=== PATIENT | male | born 1985 | race Caucasian/White ===

== ENCOUNTER 2021-02-20 06:54 | Emergency (ER) | payer OTHER ==
[~2021-02-20] VITALS: Ht 180.3 cm; Wt 79.8 kg
[2021-02-20] MEDS ORDERED: IBUP80TA PO (07:00)
[2021-02-20] MEDS ORDERED: KETOROLAC 30 MG/ML 1ML VIAL IM ONE (07:15)
[2021-02-20] MEDS ORDERED: methocarbamoL 500 MG TAB PO ONE (07:15)
[2021-02-20] MEDS ORDERED: LIDOCAINE 5% (LIDODERM) PATCH TD ONE ×2 (07:15→07:20)
--- NOTE | 2021-02-20 08:04 | REP ---
INDICATION: back pain COMPARISON: None. TECHNIQUE: AP, lateral, bilateral oblique, and coned-down views of the lumbar spine. FINDINGS: Alignment and lordosis maintained. Vertebral bodies are intact. No acute fracture/compression injury or subluxation. Disc spaces are relatively normal/age-appropriate. No obvious spondylolysis or spondylolisthesis. IMPRESSION: Normal age-appropriate lumbosacral Spine series. <Electronically signed by Marcus Mosqueda > 02/20/21 0800
--- OUTSIDE RECORDS SUMMARY | 2021-02-20 08:18 | CCD ---
Author Author [facility] Organization [facility] Address Unknown Phone Unavailable Support Name Relationship Address Phone AIR FORCE Next Of Kin CHANG[employer] UNITS UN, UN UN [place] Next Of Kin [address] [place] [address] AFSHIN [place] Next Of Kin [address] [place] [address] [facility] Next Of Kin [address] [place] [address] T[place] Next Of Kin [address] [place] [address] Alana Fields [facility] [address] [place] [address] Unavailable Re-disclosure Warning The records that you are about to access may contain information from federally-assisted alcohol or drug abuse programs. If such information is present, then the following federally mandated warning applies: This information has been disclosed to you from records protected by federal confidentiality rules (42 CFR part 2). The federal rules prohibit you from making any further disclosure of this information unless further disclosure is expressly permitted by the written consent of the person to whom it pertains or as otherwise permitted by 42 CFR part 2. A general authorization for the release of medical or other information is NOT sufficient for this purpose. The Federal rules restrict any use of the information to criminally investigate or prosecute any alcohol or drug abuse patient.The records that you are about to access may contain highly sensitive health information, the redisclosure of which is protected by Article 27-F of the [facility] Public Health law. If you continue you may have access to information: Regarding HIV / AIDS; Provided by facilities licensed or operated by the [facility] Office of Mental Health; or Provided by the [facility] Office for People With Developmental Disabilities. If such information is present, then the following [facility] mandated warning applies: This information has been disclosed to you from confidential records which are protected by state law. State law prohibits you from making any further disclosure of this information without the specific written consent of the person to whom it pertains, or as otherwise permitted by law. Any unauthorized further disclosure in violation of state law may result in a fine or nursing home sentence or both. A general authorization for the release of medical or other information is NOT sufficient authorization for further disc losure. Family History Family Member Name Family Member Gender Family Member Status Date o f Status Description Data Source(s) Unknown Unknown Problem [facility] ([facility]) sister Medications No Information Insurance Providers Payer name Policy type / Coverage type Policy ID Covered libertarian ID Covered libertarian's relationship to garg Policy Garg Plan Information [facility] [id number] S [id number] [facility] [id number] S [id number] SELF PAY UNAVAILABLE S UNAVAILA BLE [facility] ACTIVE DUTY [id number] SP [id number] ANSI-Commercial [id number] [facility] [id number] S [id number] [facility] ACTIVE DUTY [id number] SP [id number] Problems, Conditions, and Diagnoses No Information Surgeries/Procedures No Information Results ID Date Data Source [id number] 01/24/2020 12:00:00 AM EDT [facility] Name Value Range Interpretation Code Description Data Amairani rce(s) Supporting Document(s) SARS coronavirus 2 RNA [Presence] in Res piratory specimen by ORTIZ with probe detection [facility] This lab was ordered by [facility] and reported by [facility]. Procedure Social History No Information
[2021-02-20] MEDS ORDERED: METH-1164 PO (08:31)
[2021-02-20] MEDS ORDERED: LIDO5DIS41 TOP (08:32)
[2021-02-20 08:37] VITALS: BP 117/74
[2021-02-20] MEDS ORDERED: **NOTE PATIENT COMMENT** MISC XX SCH (21:00)
== END 2021-02-20 09:07 | disposition home or self-care (01) ==
LOC: M ED 06:54
DX: S33.5XXA Sprain of ligaments of lumbar spine, initial encounter (principal); X58.XXXA Exposure to other specified factors, initial encounter; Y92.89 Other specified places as the place of occurrence of the external cause; M54.30 Sciatica, unspecified side
CPT/HCPCS: 72110; 81001; 96372; 99283; J1885

== ENCOUNTER 2021-03-04 10:03 | Emergency (ER) | payer OTHER ==
[~2021-03-04] VITALS: Ht 180.3 cm; Wt 79.5 kg
[~2021-03-04 10:03] MED LIST: IBUP80TA PO; LIDO5DIS41 TOP; METH-1164 PO
[2021-03-04 10:04] VITALS: BP 109/73
--- OUTSIDE RECORDS SUMMARY | 2021-03-04 10:14 | CCD ---
Author Author [facility] Organization [facility] Address Unknown Phone Unavailable Support Name Relationship Address Phone [employer] Next Of Kin [employer] UN, UN UN [place] Next Of Kin [address] [place] [address] AFSHIN [place] Next Of [place] [address] [place] [address] [employer] Next Of Kin [address] [place] [address] [place] Next Of Kin [address] [place] [address] AFSHIN [place] ECON [address] [place] [id number] Alana Fields ECON [address] [place] [address] Unavailable Re-disclosure Warning The records that you [...] is protected by Article 27-F of the [facility] Public Health law. If you continue you may have access to information: Regarding HIV / AIDS; Provided by facilities licensed or operated by the [facility] Office of Mental Health; or Provided by the [facility] Office for People With Developmental Disabilities. If such information is present, then the following [facility] mandated warning applies: This information has been [...] law may result in a fine or prison sentence or both. A general authorization for [...] relationship to garg Policy Garg Plan Information [facility] [id number] S [id number] [facility] [id number] S [id number] SELF PAY UNAVAILABLE S UNAVAILA BLE [facility] ACTIVE DUTY [id number] ANSI-Commercial [id number] [facility] [id number] S [id number] [facility] ACTIVE DUTY [id number] Problems, Conditions, and Diagnoses No Information Surgeries/Procedures No Information Results ID Date Data Source [id number] 01/24/2020 12:00:00 AM EDT [facility] Name Value Range Interpretation Code Description Data Amairani rce(s) Supporting Document(s) SARS coronavirus 2 RNA [Presence] in Res piratory specimen by ORTIZ with probe detection [facility] This lab was ordered by [facility] C[facility] and reported by [facility]. Procedure Social History No Information
--- OUTSIDE RECORDS SUMMARY | 2021-03-04 12:34 | CCD ---
Author Author [facility] Organization [facility] Address Unknown Phone Unavailable Support Name Relationship Address Phone [employer] Next Of Kin CH[employer] UN[employer] UN, UN UN [place] Next Of Kin [address] [place] [address] AFSHIN [place] Next Of [place] [address] [place] [address] [employer] Next Of Kin [address] [place] [address] [place] Next Of Kin [address] [place] [address] AFSHIN [place] ECON [address] [place] [id number] Alana Fields ECON [address] [place] [address] Unavailable Re-disclosure Warning The records that you [...] is protected by Article 27-F of the [facility] Public Health law. If you continue you may have access to information: Regarding HIV / AIDS; Provided by facilities licensed or operated by the [facility] Office of Mental Health; or Provided by the [facility] Office for People With Developmental Disabilities. If such information is present, then the following [facility] mandated warning applies: This information [...] law may result in a fine or fdc sentence or both. A general authorization for [...] relationship to garg Policy Garg Plan Information [facility] [id number] S [id number] [facility] [id number] S [id number] SELF PAY UNAVAILABLE S UNAVAILA BLE [facility] ACTIVE DUTY [id number] ANSI-Commercial [id number] [facility] [id number] S [id number] [facility] ACTIVE DUTY [id number] Problems, Conditions, and Diagnoses No Information Surgeries/Procedures No Information Results ID Date Data Source [id number] 01/24/2020 12:00:00 AM EDT [facility] Name Value Range Interpretation Code Description Data Amairani rce(s) Supporting Document(s) SARS coronavirus 2 RNA [Presence] in Res piratory specimen by ORTIZ with probe detection [facility] This lab was ordered by [facility] Carias and reported by [facility]. Procedure Social History No Information
[2021-03-04] MEDS ORDERED: ACETAMINOPHEN 325 MG TAB PO ONE (14:10)
[2021-03-04] MEDS ORDERED: CYCL-707 PO (14:11)
[2021-03-04] MEDS ORDERED: MEDR4PAK PO (14:11)
== END 2021-03-04 14:22 | disposition home or self-care (01) ==
LOC: M ED 10:03
DX: M54.30 Sciatica, unspecified side (principal); G89.29 Other chronic pain; Z79.899 Other long term (current) drug therapy; Z82.49 Family history of ischemic heart disease and other diseases of the circulatory system

== ENCOUNTER → 2021-07-10 | Outpatient (CLI) | payer OTHER ==
[~2021-07-10] MED LIST changes: +CYCL-707 PO; +MEDR4PAK PO
[2021-07-10 10:15] LABS: PLATELET COUNT, AUTOMATED 238 10^3/uL (150-450)
[2021-07-10 10:25] LABS: INR 0.9; PROTHROMBIN TIME 12.6 SECONDS (12.7-14.5)
[2021-07-10 10:26] LABS: PARTIAL THROMBOPLASTIN TIME 26.4 SECONDS (25.9-37.0)
== END ==
LOC: M LAB 08:59
PROVIDERS: ATTEND Physical Medicine & Rehabilitation
DX: Z01.812 Encounter for preprocedural laboratory examination (principal); M51.16 Intervertebral disc disorders with radiculopathy, lumbar region

== ENCOUNTER 2023-09-12 03:54 | Observation (INO) | payer OTHER ==
[~2023-09-12] VITALS: Ht 180.3 cm; Wt 86.7 kg
[2023-09-12 04:26] LABS: BASO % 0.2 % (0.0-1.0); EOS # 0.2 10^3/uL (0.0-0.5); EOS % 1.2 % (0.0-3.0); HEMATOCRIT 45.2 % (42.0-52.0); LYMPH # 1.6 10^3/uL (1.5-5.0); MEAN CORPUSCULAR HEMOGLOBIN 30.3 pg (27.0-33.0); MEAN CORPUSCULAR HGB CONC 33.2 g/dl (32.0-36.5); MEAN CORPUSCULAR VOLUME 91.3 fl (80.0-96.0); MONO # 0.9 10^3/uL (0.0-0.8); MONO % 5.2 % (2.0-8.0); NEUTROPHILS # 14.5 10^3/uL (1.5-8.5); NEUTROPHILS % 84.1 % (36.0-66.0); PLATELET COUNT, AUTOMATED 234 10^3/uL (150-450); RED BLOOD COUNT 4.95 10^6/uL (4.30-6.10); WHITE BLOOD COUNT 17.2 10^3/uL (4.0-10.0)
[2023-09-12 04:48] LABS: LIPASE 39 U/L (12-53)
[2023-09-12 04:50] LABS: ALBUMIN 4.2 G/DL (3.2-5.2); ALKALINE PHOSPHATASE 67 U/L (46-116); ALT/SGPT 23 U/L (7.0-40); AST/SGOT 16 U/L (<34); BILIRUBIN,DIRECT 0.4 MG/DL (<0.4); BLOOD UREA NITROGEN 14 MG/DL (9-23); CALCIUM LEVEL 9.5 MG/DL (8.5-10.1); CARBON DIOXIDE LEVEL 26 MMOL/L (20-31); CHLORIDE LEVEL 103 MMOL/L (98-107); CREATININE FOR GFR 0.93 MG/DL (0.70-1.30); GLOMERULAR FILTRATION RATE > 60.0 (>60); GLUCOSE, FASTING 114 MG/DL (60-100); POTASSIUM SERUM 3.9 MMOL/L (3.5-5.1); SODIUM LEVEL 137 MMOL/L (136-145); TOTAL PROTEIN 6.8 G/DL (5.7-8.2)
[2023-09-12] MEDS ORDERED: ISOVUE-370 76% 100ML VIAL As Ordered ONE (05:38)
[2023-09-12] MEDS: KETOROLAC 30 MG/ML 1ML VIAL IV ONE (05:41)
[2023-09-12] MEDS: NS 1,000 ML IV ONE ×2 (05:43→07:40)
[2023-09-12] MEDS: PIPERACILLIN/TAZOBACTAM SOD 3.375 GM in D5W MINI-BAG PLUS 50 ML IV ONE (06:10)
[2023-09-12] MEDS ORDERED: HOME MED LIST COMPLETE! XX SCH ×2 (06:30→08:15)
[2023-09-12] MEDS: MORPHINE 2 MG/ML 1ML VIAL IV ONE (12:10)
[2023-09-12] MEDS: NS 1,000 ML IV SCH (15:30)
[2023-09-12] MEDS ORDERED: MORPHINE 4 MG/ML 1ML VIAL IV PRN (16:00)
[2023-09-12 16:25] VITALS: BP 116/68; TEMP 97.5; O2SAT 94
[2023-09-12] MEDS: PIPERACILLIN/TAZOBACTAM SOD 3.375 GM in D5W MINI-BAG PLUS 50 ML IV SCH (16:35)
[2023-09-12] MEDS ORDERED: DESFLURANE 240 ML INHALANT As Ordered ONE (18:33)
[2023-09-12] MEDS ORDERED: propofoL 200 MG/20 ML VIAL As Ordered ONE (18:35)
[2023-09-12] MEDS ORDERED: ROCURONIUM BROMIDE 50MG/5ML VIAL As Ordered ONE (18:35)
[2023-09-12] MEDS ORDERED: ONDANSETRON 4MG 2ML VIAL As Ordered ONE (18:35)
[2023-09-12] MEDS ORDERED: METOCLOPRAMIDE INJ 10MG/2ML VIAL As Ordered ONE (18:35)
[2023-09-12] MEDS ORDERED: LIDOCAINE 2% 100MG/5ML SDV (FOR ANES.) As Ordered ONE (18:35)
[2023-09-12] MEDS ORDERED: MIDAZOLAM INJ 2MG/2ML VIAL As Ordered ONE (19:16)
[2023-09-12] MEDS ORDERED: fentaNYL 100 MCG/2 ML INJECTION As Ordered ONE (19:16)
[2023-09-12] MEDS ORDERED: dexmedeTOMIDine (4MCG/ML)200MCG/50ML BTL (PRECEDEX) As Ordered ONE (19:19)
[2023-09-12] MEDS ORDERED: SUGAMMADEX SODIUM 500 MG/5 ML VIAL (BRIDION) As Ordered ONE (19:19)
[2023-09-12] MEDS ORDERED: KETOROLAC 60MG 2ML VIAL As Ordered ONE (19:21)
[2023-09-12 19:23] VITALS: BP 126/68; TEMP 97.5; O2SAT 97
[2023-09-12] MEDS ORDERED: ACETAMINOPHEN 1000MG 100ML IV BAG As Ordered ONE (20:04)
[2023-09-12] MEDS: LIDOCAINE 1% SDV 30ML VIAL As Ordered ONE (20:33)
[2023-09-12] MEDS ORDERED: fentaNYL 100 MCG/2 ML INJECTION IV PRN (20:35)
[2023-09-12] MEDS ORDERED: HYDROMORPHONE HCL 0.5 MG/ 0.5 ML SYRINGE IV PRN (20:35)
[2023-09-12] MEDS ORDERED: ONDANSETRON 4MG 2ML VIAL IV PRN ×2 (20:35→20:45)
[2023-09-12] MEDS ORDERED: PERCOCET 5MG/325MG TAB PO PRN ×2 (20:45)
[2023-09-12] MEDS: LR 1,000 ML IV SCH (21:20)
[2023-09-12] MEDS: oxyCODONE 5MG TAB PO PRN (21:20)
[2023-09-12 21:40] VITALS: BP 111/81; TEMP 97; O2SAT 96
[2023-09-12 22:10] VITALS: BP 111/81; TEMP 97.3; O2SAT 94
[2023-09-12 22:40] VITALS: BP 110/74; TEMP 97.3; O2SAT 95
[2023-09-12] MEDS: KETOROLAC 30 MG/ML 1ML VIAL IV SCH (23:25)
[2023-09-12 23:40] VITALS: BP 121/79; TEMP 97; O2SAT 94
[2023-09-13 00:40] VITALS: BP 117/77; TEMP 97.3; O2SAT 94
[2023-09-13 01:40] VITALS: BP 112/73; TEMP 97.3; O2SAT 93
[2023-09-13 02:40] VITALS: BP 112/72; TEMP 97.3; O2SAT 94
[2023-09-13 05:40] VITALS: BP 103/62; TEMP 97.3; O2SAT 95
[2023-09-13 05:41] VITALS: TEMP 97.5
[2023-09-13 07:16] LABS: BASO % 0.1 % (0.0-1.0); EOS % 0.1 % (0.0-3.0); HEMATOCRIT 39.3 % (42.0-52.0); HEMOGLOBIN 13.1 g/dl (13.5-17.5); LYMPH % 13.3 % (24.0-44.0); MEAN CORPUSCULAR HEMOGLOBIN 30.6 pg (27.0-33.0); MEAN CORPUSCULAR HGB CONC 33.3 g/dl (32.0-36.5); MEAN CORPUSCULAR VOLUME 91.8 fl (80.0-96.0); MONO # 0.3 10^3/uL (0.0-0.8); MONO % 4.6 % (2.0-8.0); NEUTROPHILS % 81.6 % (36.0-66.0); PLATELET COUNT, AUTOMATED 185 10^3/uL (150-450); RED BLOOD COUNT 4.28 10^6/uL (4.30-6.10); WHITE BLOOD COUNT 7.4 10^3/uL (4.0-10.0)
[2023-09-13 07:59] LABS: BLOOD UREA NITROGEN 14 MG/DL (9-23); CALCIUM LEVEL 8.6 MG/DL (8.5-10.1); CARBON DIOXIDE LEVEL 27 MMOL/L (20-31); CHLORIDE LEVEL 105 MMOL/L (98-107); CREATININE FOR GFR 0.95 MG/DL (0.70-1.30); GLOMERULAR FILTRATION RATE > 60.0 (>60); GLUCOSE, FASTING 120 MG/DL (60-100); POTASSIUM SERUM 4.1 MMOL/L (3.5-5.1); SODIUM LEVEL 139 MMOL/L (136-145)
[2023-09-13] MEDS ORDERED: METR-265 PO (10:50)
[2023-09-13] MEDS ORDERED: PERCOCET PO (10:50)
[2023-09-13] MEDS ORDERED: AUGM500T34 PO (10:50)
[2023-09-13] MEDS ORDERED: OXYC1TAB23 PO (13:12)
== END 2023-09-13 11:48 | disposition home or self-care (01) ==
LOC: M ED 03:54 → M SDC 14:39 → M ED INP 14:40 → M MSPAV 16:24
PROVIDERS: ADMIT Surgery; ATTEND Surgery
DX: K35.80 Unspecified acute appendicitis (principal); B95.7 Other staphylococcus as the cause of diseases classified elsewhere; D72.829 Elevated white blood cell count, unspecified; M54.9 Dorsalgia, unspecified; Z98.890 Other specified postprocedural states
CPT/HCPCS: 36415; 44970; 74177; 80048; 80076; 83605; 83690; 85025; 87040; 87077; 87186; 88304; 93005; 96361; 96365; 96366; 96367; 96375; 96376; 99285; J0131; J0665; J1100; J1885; J2250; J2405; J2543; J2765; J3010; Q9967

== ENCOUNTER 2024-09-10 08:22 | Day surgery (SDC) | payer OTHER ==
[~2024-09-10] VITALS: Ht 180.3 cm; Wt 84.5 kg
[~2024-09-10 08:22] MED LIST changes: +AUGM500T34 PO; +LIDO1ADH93 TOP; -LIDO5DIS41 TOP; +LIDOCAINE 2% 100MG/5ML SDV (FOR ANES.) As Ordered ONE; +METR-265 PO; +MIDAZOLAM INJ 2MG/2ML VIAL As Ordered ONE; +ONDANSETRON 4MG 2ML VIAL As Ordered ONE; +OXYC1TAB23 PO; +PERCOCET PO; +fentaNYL 100 MCG/2 ML INJECTION As Ordered ONE; +propofoL 200 MG/20 ML VIAL As Ordered ONE
[2024-09-10] MEDS ORDERED: LR 1,000 ML IV SCH (08:50)
[2024-09-10] MEDS: ceFAZolin SODIUM 2 GM VIAL As Ordered ONE (09:54)
[2024-09-10] MEDS ORDERED: ACETAMINOPHEN 1000MG/100ML IV BAG As Ordered ONE (10:01)
[2024-09-10] MEDS: ceFAZolin SOD 2 GM IV ONCE IV ONE (10:46)
[2024-09-10] MEDS: BACITRACIN OINTMENT 30GM TUBE As Ordered ONE (10:46)
[2024-09-10] MEDS ORDERED: KETOROLAC 30 MG/ML 1ML VIAL As Ordered ONE (10:48)
[2024-09-10] MEDS ORDERED: PERC5TAB12 PO (11:08)
[2024-09-10 11:37] VITALS: BP 104/64; TEMP 96.6; O2SAT 97
== END 2024-09-10 12:00 | disposition home or self-care (01) ==
LOC: M SDC 08:22
PROVIDERS: ATTEND Orthopaedic Surgery Hand Surgery
DX: S67.10XD Crushing injury of unspecified finger(s), subsequent encounter (principal); X58.XXXD Exposure to other specified factors, subsequent encounter; M24.542 Contracture, left hand; F17.220 Nicotine dependence, chewing tobacco, uncomplicated
CPT/HCPCS: 26445; 26525; J0131; J0665; J0690; J1885; J2250; J3010